=== PATIENT | male | born 1990 | race Caucasian/White ===

== ENCOUNTER 2018-02-09 06:14 | Inpatient (IN) | payer MEDICAID ==
[~2018-02-09] VITALS: Ht 167.6 cm; Wt 59.0 kg
--- NOTE | 2018-02-09 07:00 | NUR ---
pt bib ra 100. aaox3. with c/o chest pain and palpitations. pt states he took heroine and meth 4 hours prior to arrival. pt in no acute respiratory distress. at 0640 ER MD at bedside for MSE. pt placed on athletic monitor.
[2018-02-09 07:04] LABS: BASOPHILS % (AUTO) 0.1 % (0.0-2.0); EOSINOPHILS % (AUTO) 0.1 % (0.0-7.0); HEMATOCRIT 39.3 % (36.7-47.1); HEMOGLOBIN 13.9 g/dL (12.5-16.3); LYMPHOCYTES # (AUTO) 0.2 K/uL (20.0-40.0); LYMPHOCYTES % (AUTO) 3.5 % (20.5-51.5); MEAN CORPUSCULAR HEMOGLOBIN 31.1 uug (23.8-33.4); MEAN CORPUSCULAR HGB CONC 36 g/dL (32.5-36.3); MEAN CORPUSCULAR VOLUME 87.8 fL (73.0-96.2); MONOCYTES % (AUTO) 0.3 % (0.0-11.0); NEUTROPHILS # (AUTO) 6.3 K/uL (1.8-8.9); PLATELET COUNT (AUTO) 205 K/uL (152-348); RED BLOOD CELL COUNT(AUTO) 4.48 MIL/uL (4.06-5.63); WHITE BLOOD COUNT (AUTO) 6.6 K/uL (3.6-10.2)
[2018-02-09 07:13] LABS: CREATININE 1.7 mg/dL (0.6-1.3); POTASSIUM 3.1 mmol/L (3.5-5.1)
[2018-02-09 07:25] LABS: BILIRUBIN,DIRECT 0.5 mg/dL (0.0-0.2); BILIRUBIN,TOTAL 0.9 mg/dL (0.2-1.0); TOTAL PROTEIN, SERUM 6.4 g/dL (6.4-8.2)
--- NOTE | 2018-02-09 07:25 | NUR ---
report given to day shift RN.
[2018-02-09] MEDS ORDERED: LORAZEPAM 2 MG/1 ML VIAL ONE ×2 (07:27→13:10)
[2018-02-09] MEDS ORDERED: LORAZEPAM 2 MG/1 ML VIAL IV ONE ×2 (07:30→13:15)
[2018-02-09] MEDS ORDERED: IV NORMAL SALINE 1000 ML BAG IV ONE ×4 (07:30→10:45)
--- NOTE | 2018-02-09 07:39 | NUR ---
IV PLACED, 1L 0.9NS BOLUS INFUSING, ATIVAN ADMIN, MONITOR SHOWS SINUS TACH.
[2018-02-09 07:51] LABS: BAND % (MANUAL) 15 % (0-10); LYMPHOCYTES % (MANUAL) 5 % (20-40); NEUTROPHILS % (MANUAL) 80 % (42-75)
[2018-02-09] MEDS ORDERED: DEXAMETHASONE SOD PHOSPHATE 10 MG INJ ONE (07:58)
[2018-02-09] MEDS ORDERED: DEXAMETHASONE SOD PHOSPHATE 4 MG INJ IV ONE (08:00)
[2018-02-09] MEDS ORDERED: GENTAMICIN SULFATE INJ 80 MG in IV DEXTROSE 5% 100 ML IV ONE (08:00)
[2018-02-09] MEDS ORDERED: VANCOMYCIN IV 1,000 MG in IV DEXTROSE 5% 250 ML IV ONE (08:00)
[2018-02-09] MEDS ORDERED: METRONIDAZOLE 500 MG/NS 100ML 100 ML IV ONE ×2 (08:30→09:15)
--- NOTE | 2018-02-09 08:30 | NUR ---
DR ZAMORANO WAS NOTIFIED REGARDING LACTIC ACID LEVEL OF 4.[address] STATED NO NEED TO ACTIVATE CODE SEPSIS. THAT HE ALREADY STARTED TREATMENT FOR SEPSIS AND NOT NEEDED.
[2018-02-09] MEDS ORDERED: ONDANSETRON 4 MG/2 ML VIAL IV PRN (09:15)
[2018-02-09] MEDS ORDERED: GENTAMICIN SULFATE 20 MG/2 ML VIAL IV ONE (09:15)
[2018-02-09] MEDS ORDERED: VANCOMYCIN IV 200 ML IV ONE (09:15)
[2018-02-09] MEDS ORDERED: VANCOMYCIN IV 200 ML ONE (09:16)
--- NOTE | 2018-02-09 09:32 | NUR ---
AT APPRO 0835 DR ZAMORANO SUCCESFULLY PLACED A TRIPLE LEUMEN CENTRAL LINE TO RT NECK, 2ND SET OF BLOOD CX AND YELLOW TOP DRAWN/SENT TO LAB. PRESENTLY PT AT CT SCAN, VACO/GENT/2ND LITTER 0.9NS/FLAGYL IVPB'S INFUSING.
--- NOTE | 2018-02-09 10:35 | NUR ---
ALL MD ORDERS COMPLETED, PT RESTING, MONITOR SHOWS SINUS TACH AT 128, CS6=[id number]%. PRESENTLY AWAITING DR GUZMAN TO CALL US BACK, DR ZAMORANO WANTS TO UPGRADE PT STATUS TO GARCIA. BELONGINGS LIST COMPLETED, CONSENT FORM FOR CENTRAL LINE WAS SIGNED EARLIER.
--- NOTE | 2018-02-09 10:55 | NUR ---
DR RAO AT BEDSIDE EVAUALTING THE PT.
[2018-02-09 11:42] LABS: *BLOOD, URINE 1+ (NEGATIVE); *KETONES,URINE NEGATIVE (NEGATIVE); *PROTEIN,URINE 2+ (NEGATIVE); LEUKOCYTE ESTERASE ,URINE NEGATIVE (NEGATIVE); NITRITE, URINE NEGATIVE (NEGATIVE); PH,URINE 5.5 (5.0-8.0); UGLUCOSE NEGATIVE (NEGATIVE)
[2018-02-09 11:58] LABS: *AMPHETAMINE, URINE POSITIVE (NEGATIVE); *BARBITURATE, URINE NEGATIVE (NEGATIVE); *CANNABINOID, URINE NEGATIVE (NEGATIVE); *COCCAINE, URINE NEGATIVE (NEGATIVE); *OPIATE, URINE POSITIVE (NEGATIVE); *PHENCYCLIDINE SCREEN,URINE NEGATIVE (NEGATIVE)
[2018-02-09 11:59] LABS: *BILIRUBIN,URIN 1+ (NEGATIVE)
[2018-02-09 12:00] LABS: *CLARITY,URINE HAZY (CLEAR); *COLOR,URINE DARK YELLOW (YELLOW)
[2018-02-09 12:07] LABS: BACTERIA,URINE FEW /HPF (NONE SEEN); CALCIUM OXALATE CRYSTALS,UR MANY /HPF (NONE SEEN); SQUAMOUS EPITHELIAL CELL,UR FEW /HPF (NONE SEEN); WBC,URINE 0-3 /HPF (0-3)
--- NOTE | 2018-02-09 12:07 | NUR ---
STATUS CHANGED TO GARCIA, CALLED 2ND FLOOR EARLIER ,SPOKE TO RHIANNA RN-CHARGE NURSE AND WAS TOLD NO GARCIA BEDS AVAIL AT THIS TIME.
[2018-02-09] MEDS ORDERED: ACETAMINOPHEN 325 MG TABLET ONE (12:44)
[2018-02-09] MEDS: ACETAMINOPHEN 325 MG TABLET PO PRN ×2 (12:44→20:48)
--- NOTE | 2018-02-09 12:46 | NUR ---
LUNCH GIVEN TO PT.
--- NOTE | 2018-02-09 13:18 | NUR ---
PT RESTING, MONITOR SHOWS SINUS TACH AT 131, MC3=277% ON ROOMAIR. ELVI THE NURSE MANAGER RENTAL STATED THAT GARCIA NOT AVAIL AT THIS TIME.
[2018-02-09] MEDS ORDERED: AZTREONAM 2 G in IV NORMAL SALINE 100 ML IV SCH (14:40)
--- NOTE | 2018-02-09 14:42 | NUR ---
SBAR REPORT TO LILIAN RN, PT HAD BELONGINGS LIST DONE. PT TO RM 222 JORDYN MOSES.
--- NOTE | 2018-02-09 14:52 | NUR ---
CLINICAL PHARMACY:VANCOMYCIN DOSING Request for vancomycin dosing on 27 y/o male 5'6" 130lbs for septic shock Temp 98.9 BUN 19 Scr 1.7 WBC 6.6 bands 15 also on Azactam received vancomycin 1 gm in ER. Continue vancomycin 1gm ivpb q20h estimated trough 15. Will order trough level prior to 4th dose. Will continue to monitor.
--- NOTE | 2018-02-09 15:10 | NUR ---
Received pt from ER via gureran accompanied by x1 ER staff. Pt awake A&Ox3. Drowsy. Verbally responsive. Head to toe assessment done. on RA, 98% O2Sat. Pt with R jugular triple lumen central line placed in the ER. Flushed triple lumens, patent, no bleeding to site. R FA 22g heplock. Sinus tachy on Tele. Abd soft and nondistended. BM current. Noted with LFA and L hand splint for Left wrist sprain. Continent of B&B with BRP with min assist. Noted with generalized tattoos and left lower leg abrasions. Per pt, they are injection sites from his recreational drug use. Pt in bed, able to reposition himself for comfort. Noted in and out of sleep during interview. Will continue to monitor.
[2018-02-09 15:42] VITALS: BP 110/73
[2018-02-09] MEDS: PANTOPRAZOLE SODIUM 40 MG VIAL IV SCH (15:58)
[2018-02-09] MEDS: IV NS 1000 ML 1,000 ML IV PRN (15:59)
[2018-02-09] MEDS ORDERED: POTASSIUM CHLORIDE 10 MEQ TAB.PRT.SR PO ONE (17:30)
[2018-02-09 18:05] VITALS: BP 109/72
--- NOTE | 2018-02-09 20:00 | NUR ---
Received patient sleeping. No signs of distress noted, sinus rhythm on the monitor.
[2018-02-09 20:05] VITALS: BP 99/55
[2018-02-09] MEDS: MIRALAX 17 GM POWD.PACK PO SCH (20:58)
[2018-02-09] MEDS ORDERED: LEVOFLOXACIN 500 MG/D5W 500 MG in PREMIXED 1 EACH IV SCH (21:00)
[2018-02-09] MEDS: DOCUSATE SODIUM 100 MG CAPSULE PO SCH (21:00)
[2018-02-09] MEDS: METRONIDAZOLE 500 MG/NS 100ML 500 MG in PREMIXED 1 EACH IV SCH (22:00)
--- NOTE | 2018-02-09 22:00 | NUR ---
Awake anxious at this time & stated he has important appointment w/ his doctor tomorrow (for Methadone pick-up) at 6 AM in [place] clinic. Patient stated he will leave AMA & will just walk from [facility] to [place]. Discussed issue w/ Dr. Hamm.
[2018-02-10 00:27] VITALS: BP 110/58
[2018-02-10 04:34] VITALS: BP 98/56
[2018-02-10] MEDS ORDERED: VANCOMYCIN IV 1 G in PREMIXED 0 EACH IV SCH (05:00)
[2018-02-10] MEDS: IV NS 1000 ML 1,000 ML IV PRN ×2 (06:10→20:13)
[2018-02-10] MEDS: METRONIDAZOLE 500 MG/NS 100ML 500 MG in PREMIXED 1 EACH IV SCH ×2 (06:11→13:15)
[2018-02-10 06:43] LABS: HEMATOCRIT 31.9 % (36.7-47.1); HEMOGLOBIN 11.2 g/dL (12.5-16.3); LYMPHOCYTES % (AUTO) 3.8 % (20.5-51.5); MEAN CORPUSCULAR HGB CONC 35 g/dL (32.5-36.3); MEAN CORPUSCULAR VOLUME 88.6 fL (73.0-96.2); MONOCYTES # (AUTO) 1.4 K/uL (2.0-10.0); NEUTROPHILS # (AUTO) 24.6 K/uL (1.8-8.9); NEUTROPHILS % (AUTO) 91.2 % (38.5-71.5); PLATELET COUNT (AUTO) 166 K/uL (152-348)
[2018-02-10 06:49] LABS: POTASSIUM 4.2 mmol/L (3.5-5.1); TOTAL PROTEIN, SERUM 5.8 g/dL (6.4-8.2)
--- NOTE | 2018-02-10 07:00 | NUR ---
Patient slept good throughout the night. No acute resp distress. Attended w/ all needs. Sinus tachy on the tr.
--- NOTE | 2018-02-10 07:05 | NUR ---
Received patient in bed sleeping with no apparent s/s of pain, distress, discomfort or SOB. Bed at lowest position and call light with in reach for assistance
[2018-02-10 08:44] VITALS: BP 95/54
[2018-02-10] MEDS: PANTOPRAZOLE SODIUM 40 MG VIAL IV SCH (09:19)
[2018-02-10] MEDS: MIRALAX 17 GM POWD.PACK PO SCH (09:19)
[2018-02-10] MEDS: ACETAMINOPHEN 325 MG TABLET PO PRN ×3 (09:26→20:36)
[2018-02-10 09:45] LABS: BAND % (MANUAL) 17 % (0-10); NEUTROPHILS % (MANUAL) 74 % (42-75)
[2018-02-10 09:46] LABS: LYMPHOCYTES % (MANUAL) 5 % (20-40); MONOCYTES % (MANUAL) 4 % (2-10)
[2018-02-10 12:07] LABS: HEPATITIS B SURFACE AG Negative (Negative)
[2018-02-10 12:19] VITALS: BP 92/53
[2018-02-10] MEDS ORDERED: CLONIDINE HCL 0.1 MG TABLET PO PRN (14:30)
--- NOTE | 2018-02-10 14:52 | NUR ---
Family by bedside and asking about the patient's condition. Verbally got consent from the patient to give his family members information on his condition. Family members are asking about a detox program, informed them about [facility], called [facility] if anyone could come a talk to the family and give them information about their program
--- NOTE | 2018-02-10 14:57 | NUR ---
PHARMACY CLINICAL NOTES: (VANCOMYCIN DOSING) S:27 YO MALE WAS RE-ORDERED VANCOMYCIN PER PHARMACY AND AZACTAM 1 GM Q8H FOR SEPSIS O:BUN/SCR 13/1.0 SCR (02/09) 1.7; WBC 27 TEMP 98.8 A/P: WILL DOSE VANCO 1250 MG Q13H DOSE # 1 TODAY @ 1500. ESTIMATED PEAK 44 TROUGH 16 WILL ORDER LEVEL PRIOR TO 4TH DOSE (NOT ORDERED YET ) AND ADJUST THE DOSE NECESSARY.
[2018-02-10] MEDS: METHADONE HCL 10 MG TABLET PO SCH (14:59)
--- NOTE | 2018-02-10 15:30 | NUR ---
Informed that patient was smoking in his room.
[2018-02-10] MEDS: VANCOMYCIN IV 1,250 MG in IV DEXTROSE 5% 500 ML IV SCH (15:50)
[2018-02-10] MEDS: NICOTINE 21 MG/24HR PATCH TD SCH (15:50)
[2018-02-10] MEDS: AZTREONAM 1 G in IV NORMAL SALINE 50 ML IV SCH ×3 (15:53→20:36)
[2018-02-10] MEDS: diphenhydrAMINE 25 MG CAP PO PRN ×2 (16:14→21:34)
[2018-02-10 16:15] VITALS: BP 98/64
--- NOTE | 2018-02-10 19:20 | NUR ---
Receiuved patient awake , in bed watching TV during initial rounds. Denies any at this time. IVF infusing well on Right OJ line. Noted soiled dressing on IJ site. Will replace. Continue care as planned.
--- NOTE | 2018-02-10 19:28 | NUR ---
End of shift notes: Patient is sleeping in a supine position, easily arousable with no apparent s/s of pain, distress or discomfort. Patient was compliant with nursing care and medications. Parents stated they were able to talk to a sales representative cash registers from [facility]. Patient is aware that this is a non-smoking facility
[2018-02-10 20:13] VITALS: BP 115/60
--- NOTE | 2018-02-10 20:25 | NUR ---
Right IJ dressing changed aseptically. Patient tolerated procedure well.
[2018-02-10] MEDS: DOCUSATE SODIUM 100 MG CAPSULE PO SCH (20:36)
--- NOTE | 2018-02-10 21:27 | NUR ---
BC result received from the lab+ Gram (+) wesly. Walter Kaba NP aware.
[2018-02-10] MEDS: METRONIDAZOLE 500 MG TABLET PO SCH (21:41)
[2018-02-11] VITALS: BP 116/63
[2018-02-11] MEDS ORDERED: METHOCARBAMOL 500 MG TABLET ONE (02:51)
[2018-02-11] MEDS: ACETAMINOPHEN 325 MG TABLET PO PRN ×3 (02:55→21:03)
[2018-02-11] MEDS: METHOCARBAMOL 750 MG TABLET PO PRN (02:56)
[2018-02-11] MEDS: VANCOMYCIN IV 1,250 MG in IV DEXTROSE 5% 500 ML IV SCH ×2 (03:53→18:35)
[2018-02-11 04:00] VITALS: BP 114/54
--- NOTE | 2018-02-11 05:38 | NUR ---
SHIFT END REPORT: Remain Afebrile. Medicated once for KABA/discomforts with relief. No further complaint presented. Been eating/drinking the whole night. Right IJ remain patent and intact. Continue on antibiotics IV as ordered without s/s of adverse reaction noted. All needs attended and met. No significant event reported all night. Continue current plan of care.
[2018-02-11] MEDS: AZTREONAM 1 G in IV NORMAL SALINE 50 ML IV SCH ×3 (05:46→21:05)
[2018-02-11] MEDS: METRONIDAZOLE 500 MG TABLET PO SCH ×3 (05:47→22:07)
[2018-02-11] MEDS: PANTOPRAZOLE SODIUM 40 MG TABLET.DR PO SCH ×2 (05:48→08:11)
[2018-02-11 06:03] LABS: BASOPHILS % (AUTO) 0.2 % (0.0-2.0); EOSINOPHILS # (AUTO) 0.1 K/uL (0.0-0.7); EOSINOPHILS % (AUTO) 0.5 % (0.0-7.0); HEMATOCRIT 35.1 % (36.7-47.1); HEMOGLOBIN 12.1 g/dL (12.5-16.3); LYMPHOCYTES # (AUTO) 1.4 K/uL (20.0-40.0); LYMPHOCYTES % (AUTO) 7.3 % (20.5-51.5); MEAN CORPUSCULAR HEMOGLOBIN 30.7 uug (23.8-33.4); MEAN CORPUSCULAR HGB CONC 35 g/dL (32.5-36.3); MEAN CORPUSCULAR VOLUME 88.8 fL (73.0-96.2); MONOCYTES # (AUTO) 0.6 K/uL (2.0-10.0); NEUTROPHILS # (AUTO) 17.6 K/uL (1.8-8.9); PLATELET COUNT (AUTO) 162 K/uL (152-348); RED BLOOD CELL COUNT(AUTO) 3.95 MIL/uL (4.06-5.63); WHITE BLOOD COUNT (AUTO) 19.7 K/uL (3.6-10.2)
[2018-02-11 06:14] LABS: CREATININE 1.1 mg/dL (0.6-1.3); MAGNESIUM 1.6 mg/dL (1.8-2.4); PHOSPHOROUS 3.1 mg/dL (2.5-4.9); POTASSIUM 3.1 mmol/L (3.5-5.1)
--- NOTE | 2018-02-11 07:20 | NUR ---
Received patient in bed sleeping but easily arousable in a left lateral position side with the HOB in a flat position. No apparent s/s of pain, distress, discomfort or SOB. Bed at lowest position for safety
[2018-02-11] MEDS: METHADONE HCL 10 MG TABLET PO SCH (08:12)
[2018-02-11] MEDS: MIRALAX 17 GM POWD.PACK PO SCH (08:13)
[2018-02-11] MEDS: NICOTINE 21 MG/24HR PATCH TD SCH (08:13)
[2018-02-11] MEDS: IV NS 1000 ML 1,000 ML IV PRN (10:45)
[2018-02-11 12:00] VITALS: BP 107/64
--- NOTE | 2018-02-11 12:58 | NUR ---
PHARMACY CLINICAL NOTES: (VANCOMYCIN DOSING) S:27 YO MALE WAS RE-ORDERED VANCOMYCIN PER PHARMACY AND AZACTAM 1 GM Q8H FOR SEPSIS O:BUN/SCR 15/1.1 WBC 19.7 TEMP 99.2 A/P: WILL CONTINUE VANCO 1250 MG Q13H DOSE # 3 TODAY @ 1700. ESTIMATED PEAK 44 TROUGH 16 WILL ORDER LEVEL PRIOR TO 4TH DOSE (ORDERED FOR TOMORROW AT 0530) AND ADJUST THE DOSE NECESSARY.
[2018-02-11] MEDS ORDERED: POTASSIUM CHLORIDE 20 MEQ TAB.PRT.SR PO ONE (14:30)
[2018-02-11] MEDS: MAGNESIUM SULFATE/D5W 100 ML IV SCH ×2 (15:22→17:22)
[2018-02-11 15:53] VITALS: BP 96/64
--- NOTE | 2018-02-11 20:00 | NUR ---
Received pt alert and oriented with no c/o pain. No distress noted at this time. Will continue to monitor. Call light within reach.
[2018-02-11 20:57] VITALS: BP 91/61
[2018-02-11] MEDS: DOCUSATE SODIUM 100 MG CAPSULE PO SCH (21:00)
[2018-02-11] MEDS: diphenhydrAMINE 25 MG CAP PO PRN (21:02)
[2018-02-12] MEDS: IV NS 1000 ML 1,000 ML IV PRN ×2 (00:12→19:05)
[2018-02-12 04:37] VITALS: BP 90/57
[2018-02-12] MEDS: AZTREONAM 1 G in IV NORMAL SALINE 50 ML IV SCH ×3 (05:25→22:15)
[2018-02-12] MEDS: METRONIDAZOLE 500 MG TABLET PO SCH ×3 (05:37→22:15)
[2018-02-12] MEDS: VANCOMYCIN IV 1,250 MG in IV DEXTROSE 5% 500 ML IV SCH ×2 (06:11→07:12)
[2018-02-12 06:58] LABS: CREATININE 0.8 mg/dL (0.6-1.3); MAGNESIUM 1.7 mg/dL (1.8-2.4); POTASSIUM 4.1 mmol/L (3.5-5.1)
--- NOTE | 2018-02-12 07:01 | NUR ---
No distress noted throughout the entire shift. Still awaiting stool OB, pt refused colace last night. Called lab for vancomycin trough results and per lab personnel - will call back. Safety measures provided. Call light within reach.
--- NOTE | 2018-02-12 07:10 | NUR ---
Received patient in bed sleeping, easily arousable with no apparent s/s of pain, distress, discomfort or SOB. Bed at lowest position for safety and call light with in reach for assistance. No oxygen in use, hydration running and vancomycin running from previous shift.
[2018-02-12] MEDS: METHADONE HCL 10 MG TABLET PO SCH (08:30)
[2018-02-12] MEDS: NICOTINE 21 MG/24HR PATCH TD SCH (08:30)
[2018-02-12] MEDS: MIRALAX 17 GM POWD.PACK PO SCH (08:31)
[2018-02-12] MEDS ORDERED: VANCOMYCIN IV 1 G in PREMIXED 0 EACH IV SCH (09:00)
[2018-02-12 10:38] LABS: BASOPHILS # (AUTO) 0.1 K/uL (0.0-8.0); BASOPHILS % (AUTO) 0.4 % (0.0-2.0); EOSINOPHILS # (AUTO) 0.3 K/uL (0.0-0.7); EOSINOPHILS % (AUTO) 2.6 % (0.0-7.0); HEMATOCRIT 36.7 % (36.7-47.1); HEMOGLOBIN 12.9 g/dL (12.5-16.3); LYMPHOCYTES # (AUTO) 1.9 K/uL (20.0-40.0); LYMPHOCYTES % (AUTO) 14.6 % (20.5-51.5); MEAN CORPUSCULAR HEMOGLOBIN 30.9 uug (23.8-33.4); MEAN CORPUSCULAR HGB CONC 35 g/dL (32.5-36.3); MONOCYTES # (AUTO) 0.6 K/uL (2.0-10.0); MONOCYTES % (AUTO) 4.8 % (0.0-11.0); NEUTROPHILS # (AUTO) 10.3 K/uL (1.8-8.9); NEUTROPHILS % (AUTO) 77.6 % (38.5-71.5); PLATELET COUNT (AUTO) 180 K/uL (152-348); RED BLOOD CELL COUNT(AUTO) 4.17 MIL/uL (4.06-5.63)
[2018-02-12 10:40] LABS: WHITE BLOOD COUNT (AUTO) 13.3 K/uL (3.6-10.2)
[2018-02-12 11:07] LABS: BAND % (MANUAL) 1 % (0-10); EOSINOPHILS % (MANUAL) 3 % (0-8); LYMPHOCYTES % (MANUAL) 17 % (20-40); MONOCYTES % (MANUAL) 8 % (2-10); MYELOCYTES % 1 % (0-0); NEUTROPHILS % (MANUAL) 70 % (42-75)
[2018-02-12 11:42] VITALS: BP 104/69
[2018-02-12] MEDS: ACETAMINOPHEN 325 MG TABLET PO PRN ×2 (12:48→21:05)
[2018-02-12] MEDS: diphenhydrAMINE 25 MG CAP PO PRN ×2 (13:26→21:05)
[2018-02-12] MEDS: METHOCARBAMOL 750 MG TABLET PO PRN (13:26)
[2018-02-12] MEDS: VANCOMYCIN IV 1 G in PREMIXED 0 EACH IV SCH ×2 (14:11→23:45)
--- NOTE | 2018-02-12 14:17 | NUR ---
PHARMACY CLINICAL NOTES: (VANCOMYCIN DOSING) S:27 YO MALE WAS RE-ORDERED VANCOMYCIN PER PHARMACY AND AZACTAM 1 GM Q8H FOR SEPSIS O:BUN/SCR 13/0.8 WBC 19.7 (02/11) TEMP 98.8 TROUGH: 6.9 TODAY AT 0530 A/P: WILL CHANGE REGIMEN FROM 1250MG Q13H TO 1GM Q8H FOR NEW ESTIMATED TROUGH OF 13.4. TROUGH ORDERED BEFORE 4TH DOSE TOMORROW AT 1430. WILL CHECK LEVEL AT THAT TIME AND ADJUST NEEDED. WILL FOLLOW
[2018-02-12 15:48] VITALS: BP 110/56
[2018-02-12] MEDS: MAGNESIUM SULFATE/D5W 100 ML IV SCH ×2 (15:54→18:03)
[2018-02-12 17:06] LABS: HEPATITIS A AB, TOTAL Positive (Negative)
--- NOTE | 2018-02-12 18:46 | NUR ---
Patient has been compliant with nursing care and medications. Patient had asked to reach the doctor if he could have his methadone increase. Dr was aware and okay to increase to 20mg. Pharmacy stated that she reach out to [facility] and that the patient is no longer being attended at that facility. Ordering dose for Methadone 20mg was not verified and discontinued. Patient is aware. no apparent s/s of pain, distress, SOB or discomfort at this time. Sister was noted in the room around dinner time
--- NOTE | 2018-02-12 20:00 | NUR ---
RECEIVED PATIENT AWAKE IN BED. A/O X4. VERY PLEASANT AND APPROPRIATE WHEN APPROACHED. NO C/O PAIN AT THIS TIME. VSS. IVF INFUSING WELL TO CENTRAL LINE, TRIPLE LUMEN CATHETER NOTED TO RIGHT JUGULAR. CALL LIGHT IN REACH. ALL NEEDS ATTENDED, WILL CONTINUE TO MONITOR AND ASSESS.
[2018-02-12] MEDS: DOCUSATE SODIUM 100 MG CAPSULE PO SCH (20:26)
[2018-02-12 20:31] VITALS: BP 95/60
[2018-02-13 04:00] VITALS: BP 105/52
[2018-02-13] MEDS: METRONIDAZOLE 500 MG TABLET PO SCH ×2 (05:50→14:31)
[2018-02-13] MEDS: AZTREONAM 1 G in IV NORMAL SALINE 50 ML IV SCH ×2 (06:00→13:01)
[2018-02-13] MEDS: PANTOPRAZOLE SODIUM 40 MG TABLET.DR PO SCH (06:07)
[2018-02-13 06:35] LABS: CARBON DIOXIDE 27 mmol/L (21-32); CHLORIDE 103 mmol/L (98-107); CREATININE 0.7 mg/dL (0.6-1.3); GLUCOSE 105 mg/dL (74-106); MAGNESIUM 1.8 mg/dL (1.8-2.4); POTASSIUM 4.1 mmol/L (3.5-5.1); UREA NITROGEN, BLOOD 16 mg/dL (7-18)
[2018-02-13] MEDS: VANCOMYCIN IV 1 G in PREMIXED 0 EACH IV SCH ×2 (06:51→16:07)
[2018-02-13] MEDS: NICOTINE 21 MG/24HR PATCH TD SCH (08:19)
[2018-02-13] MEDS: MIRALAX 17 GM POWD.PACK PO SCH (08:21)
--- NOTE | 2018-02-13 08:22 | NUR ---
PT VERBALIZES THAT HE HAS BEEN HAVING DIARRHEA. MIRALAX HELD. CONTINUE TO MONITOR PT.
[2018-02-13] MEDS ORDERED: METHADONE HCL 10 MG TABLET PO SCH (09:00)
[2018-02-13 11:03] VITALS: BP 101/70
[2018-02-13] MEDS: METHOCARBAMOL 750 MG TABLET PO PRN (12:11)
[2018-02-13] MEDS: ACETAMINOPHEN 325 MG TABLET PO PRN (12:11)
[2018-02-13 13:39] LABS: BASOPHILS # (AUTO) 0.2 K/uL (0.0-8.0); BASOPHILS % (AUTO) 1.9 % (0.0-2.0); EOSINOPHILS # (AUTO) 0.6 K/uL (0.0-0.7); EOSINOPHILS % (AUTO) 5.1 % (0.0-7.0); HEMATOCRIT 38.6 % (36.7-47.1); HEMOGLOBIN 13.2 g/dL (12.5-16.3); LYMPHOCYTES # (AUTO) 2.9 K/uL (20.0-40.0); LYMPHOCYTES % (AUTO) 26.2 % (20.5-51.5); MEAN CORPUSCULAR HEMOGLOBIN 30.8 uug (23.8-33.4); MEAN CORPUSCULAR HGB CONC 34 g/dL (32.5-36.3); MEAN CORPUSCULAR VOLUME 90.4 fL (73.0-96.2); MONOCYTES # (AUTO) 0.6 K/uL (2.0-10.0); MONOCYTES % (AUTO) 5.2 % (0.0-11.0); NEUTROPHILS # (AUTO) 6.9 K/uL (1.8-8.9); NEUTROPHILS % (AUTO) 61.6 % (38.5-71.5); PLATELET COUNT (AUTO) 200 K/uL (152-348); RED BLOOD CELL COUNT(AUTO) 4.27 MIL/uL (4.06-5.63); WHITE BLOOD COUNT (AUTO) 11.3 K/uL (3.6-10.2)
--- NOTE | 2018-02-13 13:57 | NUR ---
PHARMACY CLINICAL NOTES: (VANCOMYCIN DOSING) S:27 YO MALE CONTINUED VANCOMYCIN PER PHARMACY AND AZACTAM 1 GM Q8H FOR SEPSIS O:BUN/SCR 16/0.7 WBC 19.7 (02/11) TEMP 98.2 TROUGH: PENDING TODAY AT 1430 A/P: WILL CONTINUE 1GM Q8H FOR NEW ESTIMATED TROUGH OF 13.4. TROUGH ORDERED AND PENDING FOR TODAY AT 1430. WILL CHECK LEVEL AT THAT TIME AND ADJUST NEEDED. WILL FOLLOW Addendum: 02/13/18 at 1509 by CHAR VANESSA ADM LEVEL 11.5, WILL CONTINUE REGIMEN 1GM Q8H. NOTE PATIENT MAY BE DISCHARGED TONNOAH
[2018-02-13 14:19] LABS: BAND % (MANUAL) 4 % (0-10); EOSINOPHILS % (MANUAL) 3 % (0-8); LYMPHOCYTES % (MANUAL) 24 % (20-40); MONOCYTES % (MANUAL) 7 % (2-10); MYELOCYTES % 1 % (0-0); NEUTROPHILS % (MANUAL) 61 % (42-75)
[2018-02-13 15:22] VITALS: BP 106/68
--- NOTE | 2018-02-13 17:30 | NUR ---
PT D/C HOME VIA PRIVATE VEHICLE ACCOMPANIED BY FATHER. PT D/C WITH ALL BELONGINGS, VALUABLES, CONTRABAND, AND EXIT CARE PACKET. ID BAND AND CENTRAL LINE REMOVED FROM RIGHT JUGULAR VEIN, ALL STITCHES REMOVED. PT AOX4, CALM, COOPERATIVE.
[2018-02-13 17:51] VITALS: BP 107/69
== END 2018-02-13 17:30 | disposition home or self-care (01) | DRG 280 ==
LOC: ER 06:18 → DOU 14:35 → TELE-TD 15:39 → TELE 02-10 17:25 → MED 02-11 19:00
PROVIDERS: ADMIT Internal Medicine; ATTEND Internal Medicine
PROC: 02HV33Z Insertion of Infusion Device into Superior Vena Cava, Percutaneous Approach (ICD-10-PCS; principal; 2018-02-09)
DX: K70.10 Alcoholic hepatitis without ascites (principal); N17.0 Acute kidney failure with tubular necrosis; R57.1 Hypovolemic shock; G92 Toxic encephalopathy; E87.1 Hypo-osmolality and hyponatremia; F13.20 Sedative, hypnotic or anxiolytic dependence, uncomplicated; R65.10 Systemic inflammatory response syndrome (SIRS) of non-infectious origin without acute organ dysfunction; E83.42 Hypomagnesemia; E87.6 Hypokalemia; K56.41 Fecal impaction; F11.23 Opioid dependence with withdrawal; F15.10 Other stimulant abuse, uncomplicated; F17.210 Nicotine dependence, cigarettes, uncomplicated; Z88.0 Allergy status to penicillin; F10.10 Alcohol abuse, uncomplicated; Y90.9 Presence of alcohol in blood, level not specified; K52.9 Noninfective gastroenteritis and colitis, unspecified
CPT/HCPCS: 36415; 36556; 70030-TC; 71045; 73110; 80307; 83605; 83735; 84100; 85025; 85730; 86704; 86708; 86803; 87040; 87086; 87340; 87536; 87806; 93005; 93307; A4663; C1751; C9113; J1100; J1580; J1956; J2060; J2405; J3370; J3475; J3490; J7030; J7060; Q0163